=== PATIENT | female | born 1955 | race Caucasian/White ===

== ENCOUNTER 2021-07-30 19:52 | Emergency (ER) | payer BC ==
[~2021-07-30 19:52] MED LIST: BACTRIM DS TAB1 EACH PO; BENTYL 20MG TAB20 MG PO; BIAXIN 250MG T250 MG PO; BIOTIN PO; BREO ELLIPTA 21 EACH INH; CRESTOR10 MG PO; EFFEXOR XR150 MG PO; FERROUS SULFAT325 M2 PO; FLONASE 0.05% N16 GM; LEVAQUIN TAB 5500 MG PO; LEVEMIR100 UNIT/1 SQ; MEDROL4 MG PO; NOVOLOG100 UNIT/1 SQ; PROBIOTIC1 EAC3 PO; PROMETHAZINE-DM PO; PROVENTIL HFA 61 INH INH; PROVENTIL HFA6.7 GM INH; SINGULAIR10 MG PO; TENORMIN 25 MG25 MG PO; VITAMIN C1000 M2 PO; ZOFRAN ODT 4 MG4 MG PO; ZYRTEC10 MG PO
[2021-07-30 20:27] LABS: HEMOGLOBIN 15.3 gm/dl (12.3-15.3); RED BLOOD COUNT 4.85 M/UL (4.00-5.10)
[2021-07-30 20:38] LABS: WHITE BLOOD COUNT 32.7 K/UL (4.5-11.0)
[2021-07-30] MEDS ORDERED: PROVENTIL HFA6.7 GM INH (22:07)
[2021-07-30] MEDS ORDERED: OMNICEF 300 MG300 MG PO (22:07)
[2021-07-30] MEDS ORDERED: ZOFRAN ODT 4 MG4 MG PO (22:07)
[2021-07-30] MEDS ORDERED: AEROCHAMBER1 EA XX (22:07)
== END 2021-07-30 23:00 | disposition home or self-care (01) ==
LOC: ER1 19:52
PROVIDERS: Family Medicine
DX: R05.9 Cough, unspecified (principal); R06.00 Dyspnea, unspecified; E11.9 Type 2 diabetes mellitus without complications; D72.829 Elevated white blood cell count, unspecified; H66.92 Otitis media, unspecified, left ear; Z20.822 Contact with and (suspected) exposure to COVID-19; R11.0 Nausea; Z87.09 Personal history of other diseases of the respiratory system; Z90.81 Acquired absence of spleen; F17.200 Nicotine dependence, unspecified, uncomplicated; Z79.4 Long term (current) use of insulin; Z88.0 Allergy status to penicillin; Z88.8 Allergy status to other drugs, medicaments and biological substances
CPT/HCPCS: 0240U; 71045; 80053; 82009; 82550; 82553; 83605; 83874; 84484; 85025; 93005; 94664; 96374; 99285; J2405; J7030

== ENCOUNTER 2022-03-15 23:01 | Emergency (ER) | payer OTHER ==
[~2022-03-15 23:01] MED LIST changes: +AEROCHAMBER1 EA XX; +OMNICEF 300 MG300 MG PO
[2022-03-15 23:42] LABS: HEMOGLOBIN 16.1 gm/dl (12.3-15.3); RED BLOOD COUNT 4.91 M/UL (4.00-5.10)
[2022-03-16 00:01] LABS: BUN/CREATININE RATIO 14 (0-10)
[2022-03-16] MEDS ORDERED: LEVOFLOXACIN750 MG PO (04:04)
== END 2022-03-16 04:22 | disposition home or self-care (01) ==
LOC: ER1 23:01
PROVIDERS: Physician Assistant Medical
DX: R50.9 Fever, unspecified (principal); R06.02 Shortness of breath; R05.9 Cough, unspecified; R51.9 Headache, unspecified; R11.0 Nausea; E11.9 Type 2 diabetes mellitus without complications; J45.909 Unspecified asthma, uncomplicated; F17.210 Nicotine dependence, cigarettes, uncomplicated; Z90.710 Acquired absence of both cervix and uterus; Z20.822 Contact with and (suspected) exposure to COVID-19
CPT/HCPCS: 71045; 80053; 82550; 82553; 83605; 84484; 85025; 87040; 93005; 96374; 99285; J1956; Q9967; U0002